=== PATIENT | female | born 1960 | race Caucasian/White ===

== ENCOUNTER 2016-09-29 09:43 | Outpatient (CLI) | payer OTHER ==
[~2016-09-29 09:43] MED LIST: HYCET1 ML PO; IBUPROFEN600 MG PO; LOTEMAX0.5 % OP
--- NOTE | 2016-09-29 11:13 | DIAGNOSTIC IMAGING REPORT ---
PROCEDURE: US COMPLETE PELVIC W/TRANSVAG INDICATION: PELVIC PAIN TECHNIQUE: Transabdominal and endovaginal pool scale and color Doppler sonographic images of the female pelvis were obtained. COMPARISON: Pelvic ultrasound dated 03/10/2016 FINDINGS: TRANSABDOMINAL SCANS: The uterus is of normal size 8.0 x 3.6 x 4.5 cm Kidneys are normal. There is fatty liver. TRANSVAGINAL SCANS: The uterus is anteverted. Myometrium is heterogeneous. The endometrium measures 7.2 mm. Right ovary is normal measuring 2.6 x 1.8 x 1.4 cm The left ovary is normal measuring 3.4 x 2.4 x 2.1 cm. There is a prominent follicle on the left ovary measuring 18 x 15 x 10 mm There is a trace of free in the cervix. IMPRESSION: 1. Heterogeneous uterus. 2. Fatty liver.
== END 2016-09-29 23:00 ==
LOC: US SRH 09:43
DX: R10.2 Pelvic and perineal pain (principal); K76.0 Fatty (change of) liver, not elsewhere classified